=== PATIENT | female | born 1955 | race Caucasian/White ===

== ENCOUNTER 2017-11-10 20:11 | Emergency (ER) | payer OTHER ==
[2017-11-10] MEDS ORDERED: Lorazepam 2 MG/ML VIAL ONE (20:37)
[2017-11-10 20:44] LABS: #Basophils 0.1 thou/uL (0.0-0.2); #Eosinphils 0.1 thou/uL (0.0-0.7); #Monocytes 0.7 thou/uL (0.11-0.59); #Neutrophils 5.5 thou/uL (1.40-6.50); %Basophils 0.8 % (0.0-1.0); %Eosinophils 0.9 % (0.0-10.0); %Lymphocytes 13.3 % (21.0-51.0); %Monocytes 9.5 % (0.0-10.0); %Neutrophils 75.4 % (42.0-75.0); Hemoglobin 14.5 g/dL (12.0-16.0); Mean Corpuscular HGB CONC 33.7 g/dL (32.0-36.0); Mean Corpuscular Hemoglobin 28.8 pg (27.0-31.0); Mean Corpuscular Volume 85.5 fL (78.0-98.0); Mean Platelet Volume 7.1 fL (7.4-10.4); Platelet Count 342 thou/uL (130-400); RBC Distribution Width 12.5 % (11.5-14.5); Red Blood Cell (RBC) Count 5.02 mill/uL (4.20-5.40); White Blood Cell (WBC) Count 7.3 thou/uL (4.8-10.8)
[2017-11-10 21:00] LABS: ALT (SGPT) 27 U/L (8-55); AST (SGOT) 27 U/L (5-34); Albumin 4.6 g/dL (3.4-4.8); Alkaline Phosphatase 73 U/L (40-150); Anion Gap 20 mmol/L (10-20); BUN (Urea Nitrogen) 19 mg/dL (9.8-20.1); Bilirubin, Total 0.9 mg/dL (0.2-1.2); CK (CPK) 101 U/L (29-168); CKMB 3.8 ng/mL (0-6.6); Calc. Creatinine Clearance 0 mL/min (70-130); Calcium 10.3 mg/dL (7.8-10.44); Carbon Dioxide 21 mmol/L (23-31); Chloride 100 mmol/L (98-107); Estimated GFR-MDRD 76; Globulin 3.1 g/dL (2.4-3.5); Glucose 87 mg/dL (80-115); Potassium 3.9 mmol/L (3.5-5.1); Protein, Total 7.7 g/dL (6.0-8.3); Sodium 137 mmol/L (136-145); Troponin I Less than 0.010 ng/mL (< 0.028)
--- NOTE | 2017-11-10 21:41 | RAD ---
RADIOGRAPH CHEST 1 VIEW: 11/10/17 HISTORY: 62-year-old female with dyspnea. FINDINGS: There are no air space densities, pulmonary edema, pneumothorax, or cardiomegaly. The lateral costop hrenic angles are sharp. IMPRESSION: No acute cardiopulmonary findings. kings [] POS: CALLIE
== END 2017-11-10 21:42 | disposition home or self-care (01) ==
LOC: SCSER 20:11
DX: F13.239 Sedative, hypnotic or anxiolytic dependence with withdrawal, unspecified (principal); F41.9 Anxiety disorder, unspecified; Z85.828 Personal history of other malignant neoplasm of skin
CPT/HCPCS: 71045; 80053; 82553; 83735; 83880; 84484; 85025; 93005; 96361; 96374; J2060

== ENCOUNTER 2018-03-18 11:32 | Emergency (ER) | payer OTHER ==
[~2018-03-18 11:32] MED LIST: Iopamidol 370 76% 100 ML VIAL ONE
[2018-03-18] MEDS ORDERED: Ondansetron PF 4 MG/2 ML Vial ONE (11:55)
[2018-03-18] MEDS ORDERED: Ketorolac Tromethamine 30 MG/ML VIAL ONE (11:55)
[2018-03-18 12:09] LABS: #Eosinphils 0.1 thou/uL (0.0-0.7); #Lymphocytes 0.6 thou/uL (1.20-3.40); #Monocytes 0.5 thou/uL (0.11-0.59); #Neutrophils 8.5 thou/uL (1.40-6.50); %Basophils 0.4 % (0.0-1.0); %Eosinophils 0.6 % (0.0-10.0); %Lymphocytes 6.1 % (21.0-51.0); %Monocytes 5.5 % (0.0-10.0); %Neutrophils 87.4 % (42.0-75.0); Hemoglobin 11.9 g/dL (12.0-16.0); Mean Corpuscular HGB CONC 32.1 g/dL (32.0-36.0); Mean Corpuscular Hemoglobin 26.6 pg (27.0-31.0); Mean Corpuscular Volume 82.7 fL (78.0-98.0); Mean Platelet Volume 9.2 fL (7.4-10.4); Platelet Count 196 thou/uL (130-400); RBC Distribution Width 13.4 % (11.5-14.5); Red Blood Cell (RBC) Count 4.47 mill/uL (4.20-5.40); White Blood Cell (WBC) Count 9.7 thou/uL (4.8-10.8)
[2018-03-18 12:26] LABS: ALT (SGPT) 18 U/L (8-55); AST (SGOT) 18 U/L (5-34); Albumin 3.9 g/dL (3.4-4.8); Alkaline Phosphatase 54 U/L (40-150); Anion Gap 14 mmol/L (10-20); BUN (Urea Nitrogen) 14 mg/dL (9.8-20.1); Bilirubin, Total 0.5 mg/dL (0.2-1.2); Calc. Creatinine Clearance 0 mL/min (70-130); Calcium 9.6 mg/dL (7.8-10.44); Carbon Dioxide 22 mmol/L (23-31); Chloride 107 mmol/L (98-107); Estimated GFR-MDRD Greater than 90; Globulin 2.7 g/dL (2.4-3.5); Glucose 106 mg/dL (80-115); Lipase 10 U/L (8-78); Potassium 3.7 mmol/L (3.5-5.1); Protein, Total 6.6 g/dL (6.0-8.3); Sodium 139 mmol/L (136-145)
[2018-03-18] MEDS ORDERED: Morphine 4 MG/ML VIAL ONE (12:59)
--- NOTE | 2018-03-18 13:32 | CT ---
CT OF THE ABDOMEN AND PELVIS WITH IV CONTRAST: Date: 03/18/18 PROVIDED CLINICAL HISTORY: Left lower quadrant pain. FINDINGS: Visualized lung bases are free of significant opacity. There is periportal low density involving the liver. There is a small, subcentimeter, inferior pole r ight renal angiomyolipoma. The solid abdominal organs demonstrate an otherwise unremarkable CT appear ance. There is extensive fluid density throughout the colon, particularly in the region of the right colon. Fluid density also noted scattered throughout regional small bowel which appears occasionally ectati c. There is no evidence for a bowel obstruction. There is no inflammatory fat stranding, free fluid, or free air apparent. The appendix appears normal. There is a diffusely hypodense appearance to the uterus, with several enhancing foci. Findings presum ably reflect uterine fibroid disease, but are incompletely evaluated by CT. The osseous structures demonstrate no concerning lytic or blastic lesions. Degenerative changes are prominent involving the lower lumbar spine. IMPRESSION: 1. Fluid density throughout the colon and scattered throughout regional small bowel with mildly ecta tic small bowel demonstrated. Findings suggest an enteritis/diarrheal illness. No evidence for bowel obstruction. 2. Nonspecific periportal low density. This can be seen in the setting of volume resuscitation. 3. Abnormal CT appearance to the uterus, nonspecific. Correlation with nonemergent follow-up pelvic ultrasound recommended. POS: CALLIE
[2018-03-18 13:54] LABS: Bilirubin Negative (Negative); Blood, Urine Negative (Negative); Clarity Slightly Cloudy (Clear); Glucose, Urine (Dipstick) Negative (Negative); Leukocyte Negative (Negative); Nitrite Negative (Negative); Protein, Urine (Dipstick) Trace mg/dL (Neg-Trace); Specific Gravity, Urine 1.001 (1.002-1.036); Urobilinogen 0.2 mg/dL (0.2-1.0)
== END 2018-03-18 14:07 | disposition home or self-care (01) ==
LOC: SCSER 11:32
DX: K52.9 Noninfective gastroenteritis and colitis, unspecified (principal); F41.9 Anxiety disorder, unspecified; Z79.899 Other long term (current) drug therapy
CPT/HCPCS: 74177; 80053; 81003; 83605; 83690; 85025; 96361; 96374; 96375; J1885; J2270; J2405

== ENCOUNTER 2018-03-23 14:40 | Outpatient (CLI) | payer OTHER | END 2018-03-23 14:41 | disposition home or self-care (01) | LOC: BICMAMMO 14:40 | PROVIDERS: ATTEND Obstetrics & Gynecology | DX: Z12.31 Encounter for screening mammogram for malignant neoplasm of breast (principal); Z85.828 Personal history of other malignant neoplasm of skin | CPT/HCPCS: 77063; 77067 ==